=== PATIENT | female | born 1960 | race African-American/Black ===

== ENCOUNTER 2023-07-16 03:25 | Inpatient (IN) | payer SELFPAY ==
[2023-07-16 04:09] LABS: #Basophils 0.1 10x3/uL (0.0-0.2); #Monocytes 0.3 10x3/uL (0.0-1.1); #Neutrophils 4.5 10x3/uL (1.5-8.4); %Basophils 0.9 % (0.0-2.0); %Eosinophils 0.5 % (0.0-6.0); %Lymphocytes 14.7 % (18.0-47.0); %Monocytes 5.5 % (0.0-10.0); %Neutrophils 78.2 % (40.0-75.0); Hematocrit 35.7 % (34.9-44.5); Hemoglobin 11.8 g/dL (12.0-15.5); Mean Corpuscular HGB CONC 33.1 g/dL (32.0-36.0); Mean Corpuscular Hemoglobin 31.7 pg (27.0-33.0); Mean Platelet Volume 9.9 fl (7.4-10.4); Platelet Count 390 10x3/uL (150-450); RBC Distribution Width 13.3 % (11.5-14.5); Red Blood Cell (RBC) Count 3.72 10x6/uL (3.90-5.03); White Blood Cell (WBC) Count 5.8 10x3/uL (3.5-10.5)
[2023-07-16 04:14] LABS: ALT (SGPT) 14 U/L (8-55); Albumin 4.1 g/dL (3.4-4.8); Alkaline Phosphatase 34 U/L (40-110); Anion Gap 14 mmol/L (10-20); BUN (Urea Nitrogen) 9 mg/dL (9.8-20.1); Bilirubin, Total 0.3 mg/dL (0.2-1.2); Calc. Creatinine Clearance 0 mL/min (70-130); Calcium 9.6 mg/dL (7.8-10.44); Carbon Dioxide 21 mmol/L (23-31); Chloride 101 mmol/L (98-107); Estimated GFR 98; Globulin 3.8 g/dL (2.4-3.5); Glucose 115 mg/dL (80-115); Potassium 4.2 mmol/L (3.5-5.1); Protein, Total 7.9 g/dL (5.8-8.1); Sodium 132 mmol/L (136-145)
[2023-07-16 04:27] LABS: AST (SGOT) 20 U/L (5-34)
[2023-07-16 05:08] LABS: PTT 29.6 sec (22.0-33.0); Prothrombin Time 11.1 sec (9.5-12.1)
[2023-07-16] MEDS ORDERED: Ondansetron PF 4 MG/2 ML Vial IVP PRN ×2 (08:21→08:27)
[2023-07-16] MEDS ORDERED: Promethazine HCl 25 MG/ML VIAL IM PRN (08:27)
[2023-07-16] MEDS ORDERED: Dextrose 50% Abboject 50 ML SYRINGE SLOW IVP PRN (08:27)
[2023-07-16] MEDS ORDERED: Mag-Al 1200 mg/1200 mg/30 ML UDCUP PO PRN (08:27)
[2023-07-16] MEDS ORDERED: Nicotine 14 MG PATCH TD PRN (08:27)
[2023-07-16] MEDS ORDERED: Dextrose 5% in Water 1,000 ML IV PRN (08:27)
[2023-07-16] MEDS ORDERED: Glucagon 1 MG/ML KIT IM PRN (08:27)
[2023-07-16] MEDS ORDERED: Calcium Carbonate 500 MG ChewTAB PO PRN (08:27)
[2023-07-16] MEDS ORDERED: Ipratropium/Albuterol 3 ML NEB NEB PRN (08:27)
[2023-07-16] MEDS ORDERED: Sodium Chloride 0.9% 1,000 ML IV SCH (08:30)
[2023-07-16] MEDS ORDERED: Electrolyte Replacement Protocol 1 EACH FS SCH (08:30)
[2023-07-16 08:54] LABS: Magnesium 2.1 mg/dL (1.6-2.6)
[2023-07-16] MEDS: Amlodipine 5 MG TAB PO SCH (13:14)
[2023-07-16] MEDS: Lactated Ringer's 1,000 ML IV SCH (13:14)
[2023-07-16] MEDS: Multivit, Therapeutic 1 TAB PO SCH (13:15)
[2023-07-16] MEDS: Famotidine/PF 20 mg/2ml Vial SLOW IVP SCH ×2 (13:15→20:53)
[2023-07-16] MEDS: Piperacillin/Tazobactam 3.375 GM in Sodium Chloride 0.9% 100 ML IVPB SCH ×2 (13:15→18:04)
[2023-07-16] MEDS: Thiamine HCl 200 MG/2 ML VIAL SLOW IVP SCH (13:16)
[2023-07-16] MEDS: Folic Acid 1 MG TAB PO SCH (13:17)
[2023-07-16] MEDS ORDERED: Rocuronium Bromide 10 MG/ML (10ML VIAL) ONE (15:00)
[2023-07-16] MEDS ORDERED: fentaNYL 50 mcg/mL 1 mL Vial ONE ×2 (15:00→15:31)
[2023-07-16] MEDS ORDERED: Lidocaine 2% PF 5 ML VIAL ONE (15:00)
[2023-07-16] MEDS ORDERED: Dexamethasone 20 MG/5 ML VIAL ONE (15:00)
[2023-07-16] MEDS ORDERED: Ondansetron PF 4 MG/2 ML Vial ONE (15:00)
[2023-07-16] MEDS ORDERED: PROPOFOL 20 ML ONE (15:00)
[2023-07-16 15:16] VITALS: BMI 18.1
[2023-07-16] MEDS ORDERED: Dexmedetomidine 200 MCG/2 ML VIAL ONE (15:29)
[2023-07-16] MEDS ORDERED: PHENYLEPHRINE-NS 100 MCG/ML 10 ML SYRINGE ONE (15:46)
[2023-07-16] MEDS ORDERED: Ropivacaine 0.5% HCl/PF (150 MG/30 ML VIAL) ONE (16:36)
[2023-07-16] MEDS ORDERED: Water For Injection,Sterile 20 ML ONE (16:41)
[2023-07-16 19:16] LABS: Amphetamine Not Detected (NotDetected); Barbiturates Screen Not Detected (NotDetected); Benzodiazepine Screen Not Detected (NotDetected); Cocaine Metabolite Screen Not Detected (NotDetected); Methadone Not Detected (NotDetected); Methamphetamine Not Detected (NotDetected); Opiate Screen Not Detected (NotDetected); Oxycodone Screen Not Detected (NotDetected); Phencyclidine (PCP) Not Detected (NotDetected); THC/Cannabinoid Screen Detected (NotDetected); Tricyclic Screen Not Detected (NotDetected)
[2023-07-16] MEDS: Morphine 4 MG/ML VIAL SLOW IVP PRN (19:51)
[2023-07-16] MEDS: Enoxaparin 30 MG (0.3 mL) SYRINGE SC SCH (20:53)
[2023-07-17 05:53] LABS: #Monocytes 0.8 10x3/uL (0.0-1.1); #Neutrophils 15.3 10x3/uL (1.5-8.4); %Basophils 0.1 % (0.0-2.0); %Lymphocytes 3.8 % (18.0-47.0); %Monocytes 4.6 % (0.0-10.0); %Neutrophils 91.2 % (40.0-75.0); Hematocrit 29.2 % (34.9-44.5); Hemoglobin 9.5 g/dL (12.0-15.5); Mean Corpuscular HGB CONC 32.5 g/dL (32.0-36.0); Mean Corpuscular Hemoglobin 31.1 pg (27.0-33.0); Mean Corpuscular Volume 95.7 fl (81.6-98.3); Mean Platelet Volume 10.1 fl (7.4-10.4); Platelet Count 385 10x3/uL (150-450); RBC Distribution Width 13.8 % (11.5-14.5); Red Blood Cell (RBC) Count 3.05 10x6/uL (3.90-5.03); White Blood Cell (WBC) Count 16.8 10x3/uL (3.5-10.5)
[2023-07-17 06:11] LABS: Anion Gap 20 mmol/L (10-20); Calc. Creatinine Clearance 61 mL/min (70-130); Calcium 8.7 mg/dL (7.8-10.44); Carbon Dioxide 15 mmol/L (23-31); Chloride 105 mmol/L (98-107); Estimated GFR 95; Glucose 85 mg/dL (80-115); Magnesium 1.9 mg/dL (1.6-2.6); Potassium 3.7 mmol/L (3.5-5.1); Sodium 136 mmol/L (136-145)
[2023-07-17 06:21] LABS: Phosphorus 4.4 mg/dL (2.3-4.7)
[2023-07-17 06:54] LABS: BUN (Urea Nitrogen) 13 mg/dL (9.8-20.1)
[2023-07-17] MEDS ORDERED: Lorazepam 2 MG/ML VIAL IM PRN (08:16)
[2023-07-17] MEDS: Folic Acid 1 MG TAB PO SCH (08:20)
[2023-07-17] MEDS: Thiamine HCl 200 MG/2 ML VIAL SLOW IVP SCH (08:20)
[2023-07-17] MEDS: Multivit, Therapeutic 1 TAB PO SCH (08:23)
[2023-07-17] MEDS: Magnesium 2 GM/50 ML(in water) 2 GM in Premix 1 BAG IVPB SCH (10:11)
[2023-07-17] MEDS: Lactated Ringer's 500 ML IV SCH (10:21)
[2023-07-17] MEDS: FLU VACC QS2023-24(6MOS UP)/PF 60 MCG/0.5 ML SYRINGE IM ONE (16:38)
[2023-07-17] MEDS: Losartan 50 MG TAB PO SCH (20:54)
[2023-07-17] MEDS: Enoxaparin 40 MG (0.4 mL) SYRINGE SC SCH (21:00)
[2023-07-18 05:14] LABS: #Monocytes 0.5 10x3/uL (0.0-1.1); #Neutrophils 10.1 10x3/uL (1.5-8.4); %Basophils 0.3 % (0.0-2.0); %Eosinophils 0.3 % (0.0-6.0); %Lymphocytes 6.7 % (18.0-47.0); %Monocytes 4.4 % (0.0-10.0); %Neutrophils 88.1 % (40.0-75.0); Hematocrit 29.3 % (34.9-44.5); Mean Corpuscular HGB CONC 34.1 g/dL (32.0-36.0); Mean Corpuscular Hemoglobin 32.2 pg (27.0-33.0); Mean Corpuscular Volume 94.2 fl (81.6-98.3); Mean Platelet Volume 10.3 fl (7.4-10.4); Platelet Count 369 10x3/uL (150-450); RBC Distribution Width 13.8 % (11.5-14.5); Red Blood Cell (RBC) Count 3.11 10x6/uL (3.90-5.03); White Blood Cell (WBC) Count 11.4 10x3/uL (3.5-10.5)
[2023-07-18] MEDS: hydrALAZINE 20 MG/ML VIAL SLOW IVP PRN (05:17)
[2023-07-18 05:30] LABS: Anion Gap 15 mmol/L (10-20); BUN (Urea Nitrogen) 8 mg/dL (9.8-20.1); Calc. Creatinine Clearance 71 mL/min (70-130); Calcium 8.7 mg/dL (7.8-10.44); Carbon Dioxide 19 mmol/L (23-31); Chloride 102 mmol/L (98-107); Estimated GFR 100; Glucose 72 mg/dL (80-115); Potassium 3.8 mmol/L (3.5-5.1); Sodium 132 mmol/L (136-145)
[2023-07-18] MEDS ORDERED: Lorazepam 1 MG TAB PO PRN (08:16)
[2023-07-18] MEDS: Magnesium 2 GM/50 ML(in water) 2 GM in Premix 1 BAG IVPB SCH (10:54)
[2023-07-18] MEDS: NIFEdipine XL 60 MG ER.TAB PO SCH ×2 (11:02→20:56)
[2023-07-18] MEDS: Carvedilol 3.125 MG TAB PO SCH ×2 (11:03→17:30)
[2023-07-18] MEDS: Morphine 2 MG/ML VIAL SLOW IVP PRN (17:25)
[2023-07-18] MEDS: Acetaminophen 325 MG TAB PO SCH (23:39)
[2023-07-19 06:24] LABS: Magnesium 2.2 mg/dL (1.6-2.6)
[2023-07-19 06:26] LABS: #Monocytes 0.3 10x3/uL (0.0-1.1); #Neutrophils 6.8 10x3/uL (1.5-8.4); %Basophils 0.5 % (0.0-2.0); %Eosinophils 0.3 % (0.0-6.0); %Lymphocytes 10.5 % (18.0-47.0); %Monocytes 3.8 % (0.0-10.0); %Neutrophils 84.6 % (40.0-75.0); Hematocrit 30.2 % (34.9-44.5); Hemoglobin 10.1 g/dL (12.0-15.5); Mean Corpuscular HGB CONC 33.4 g/dL (32.0-36.0); Mean Corpuscular Hemoglobin 31.2 pg (27.0-33.0); Mean Corpuscular Volume 93.2 fl (81.6-98.3); Platelet Count 407 10x3/uL (150-450); RBC Distribution Width 13.5 % (11.5-14.5); Red Blood Cell (RBC) Count 3.24 10x6/uL (3.90-5.03)
[2023-07-19] MEDS ORDERED: Lorazepam 1 MG TAB PO PRN (08:16)
[2023-07-19] MEDS: Thiamine 100 MG TAB PO SCH (08:47)
[2023-07-19 13:44] VITALS: BP 121/56; TEMP 98.3
[2023-07-20] MEDS ORDERED: Lorazepam 0.5 MG TAB PO PRN (08:16)
== END 2023-07-19 14:02 | disposition home or self-care (01) | DRG 330 ==
LOC: CSHERS 03:25 → CSHTELE 05:40 → OBSVTOIN 13:57
PROVIDERS: ADMIT Surgery; ATTEND Internal Medicine
PROC: 0DTF0ZZ Resection of Right Large Intestine, Open Approach (ICD-10-PCS; principal; 2023-07-16)
DX: K56.1 Intussusception (principal); E87.1 Hypo-osmolality and hyponatremia; I10 Essential (primary) hypertension; Z71.6 Tobacco abuse counseling; Z98.890 Other specified postprocedural states; F17.210 Nicotine dependence, cigarettes, uncomplicated; Z82.49 Family history of ischemic heart disease and other diseases of the circulatory system; Z83.3 Family history of diabetes mellitus; Z79.899 Other long term (current) drug therapy; K56.609 Unspecified intestinal obstruction, unspecified as to partial versus complete obstruction; D64.9 Anemia, unspecified; F10.20 Alcohol dependence, uncomplicated; Z79.82 Long term (current) use of aspirin
CPT/HCPCS: 36415; 74177; 80048; 80053; 80306; 82378; 83735; 84100; 85025; 85610; 85730; 88309; 88341; 88342; 93005; 93010; J0360; J1100; J1650; J2001; J2270; J2272; J2405; J2543; J2704; J2795; J3010; J3411; J3475; J3490; J7120; S0028

== ENCOUNTER 2023-07-22 11:38 | Emergency (ER) | payer SELFPAY | END 2023-07-22 14:25 | disposition home or self-care (01) | LOC: CSHERS 11:38 | DX: Z48.01 Encounter for change or removal of surgical wound dressing (principal); I10 Essential (primary) hypertension; F17.210 Nicotine dependence, cigarettes, uncomplicated; Z55.6 Problems related to health literacy; Z98.890 Other specified postprocedural states | CPT/HCPCS: 99282 ==